=== PATIENT | female | born 1980 ===

== ENCOUNTER → 2024-07-03 | Outpatient (CLI) | payer BC | END | disposition home or self-care (01) | LOC: Rad HDHVI 15:57 | PROVIDERS: ATTEND Internal Medicine Cardiovascular Disease | DX: Z01.818 Encounter for other preprocedural examination (principal) | CPT/HCPCS: 93306 ==

== ENCOUNTER → 2024-08-14 | Outpatient (CLI) | payer BC ==
[~2024-08-14] VITALS: Ht 154.9 cm; Wt 95.3 kg
== END | disposition home or self-care (01) ==
LOC: Rad HDHVI 08:00
PROVIDERS: ATTEND Internal Medicine Cardiovascular Disease
DX: I11.9 Hypertensive heart disease without heart failure (principal); I20.0 Unstable angina; I25.2 Old myocardial infarction; E11.65 Type 2 diabetes mellitus with hyperglycemia; Z82.49 Family history of ischemic heart disease and other diseases of the circulatory system
CPT/HCPCS: 78452; 93017; 96374; A9500